=== PATIENT | female | born 1980 | race Caucasian/White ===

== ENCOUNTER → 2017-03-17 | Outpatient (CLI) | payer BC ==
[~2017-03-17] MED LIST: DUO-KAPS1 CAP PO; IBUPROFEN200 M1 PO
== END ==
LOC: COL.CARD 14:05
DX: R00.0 Tachycardia, unspecified (principal)

== ENCOUNTER → 2019-05-14 | Outpatient (CLI) | payer BC | LOC: COL.RAD 08:12 | DX: R14.0 Abdominal distension (gaseous) (principal); K92.0 Hematemesis; R10.13 Epigastric pain; R11.2 Nausea with vomiting, unspecified | CPT/HCPCS: A9541 ==

== ENCOUNTER 2022-06-11 08:27 | Day surgery (SDC) | payer BC ==
[~2022-06-11] VITALS: Ht 142.2 cm; Wt 51.0 kg
[2022-06-11] MEDS ORDERED: CYMBALTA 20MG20 MG PO (09:14)
[2022-06-11] MEDS ORDERED: PRIL40 PO (09:14)
[2022-06-11] MEDS ORDERED: BYSTOLIC10 MG PO (09:15)
[2022-06-11] MEDS ORDERED: VITAMIND3 5000 PO (09:15)
[2022-06-11] MEDS ORDERED: SYNTHROID 0.0.025 MG PO (09:16)
[2022-06-11] MEDS ORDERED: REGLAN 5MG T5 MG/TAB PO (09:17)
[2022-06-11 10:44] VITALS: BP 119/75; PULSE 54; TEMP 97.2
[2022-06-11 11:00] VITALS: BP 116/81; PULSE 84; TEMP 97.4
[2022-06-11 11:15] VITALS: BP 121/81; PULSE 85
[2022-06-11 11:30] VITALS: BP 117/85; PULSE 63
--- NOTE | 2022-06-11 11:51 | NUR ---
1100: Patient arrived back into bay 8 from Endo procedure. Patient is alert and awake. Vital signs stable on room air. Report received from [facility]. Patient requesting water and saltines. Patient denies pain and nausea. Call light left within reach. brought back into room from waiting room. 1105: MD in to see patient. 1115: Patient vitally stable. Tolerating food and drink well. Denies pain or nausea at this time. 1130: Patient meets discharge criteria. IV removed without complications. Went through discharge instructions with patient and . Patient got dressed. Escorted to patient entrance via wheelchair. Patient left in the care of her , Sudeep.
== END 2022-06-11 11:45 | disposition home or self-care (01) ==
LOC: SDCO 08:27
DX: D13.1 Benign neoplasm of stomach (principal); F45.8 Other somatoform disorders; Z87.11 Personal history of peptic ulcer disease; K44.9 Diaphragmatic hernia without obstruction or gangrene
CPT/HCPCS: J2704; J7030

== ENCOUNTER 2023-07-12 11:09 | Inpatient (IN) | payer BC ==
[~2023-07-12] VITALS: Ht 142.2 cm; Wt 54.2 kg
[~2023-07-12 11:09] MED LIST changes: +BYSTOLIC10 MG PO; +CYMBALTA 20MG20 MG PO; +PRIL40 PO; +REGLAN 5MG T5 MG/TAB PO; +SYNTHROID 0.0.025 MG PO; +VITAMIND3 5000 PO
--- NOTE | 2023-07-12 15:01 | NUR ---
New pt arrived to unit from [facility] accompanied by her . Pt is a/o x4. NWB to RLE. Incisions x 3 w/ sutures noted to RLE. Valuable items denied by the pt & her spouse. Glasses are at the bedside. plans to go home to [place] to bring more clothing. Pt's skin is intact except for RLE surgical incisions. Orientation provided to room/unit. No further questions. Call light in her reach. Bed alarm is on.
[2023-07-12 15:11] VITALS: BP 125/87; PULSE 99; TEMP 98.9
[2023-07-12] MEDS ORDERED: ASPIRIN E.C. 8181 MG PO (15:14)
[2023-07-12] MEDS ORDERED: TYLENOL 500MG500 MG PO (15:28)
[2023-07-12] MEDS ORDERED: FERROUSAL325 MG PO (15:29)
[2023-07-12] MEDS ORDERED: NORCO 325 MG-7.1 TAB PO (15:30)
[2023-07-12 17:30] VITALS: BP_SYST 125
--- NOTE | 2023-07-12 17:44 | NUR ---
Pt resting supine in bed watching tv. Pt eating dinner independently. PRN pain medication given approx 1.5 hrs ago. Pt denies the need for additional pain medication at this time. Incisions x 4 remain CDI w/ sutures. Pt has her call light in reach. Bed alarm is on.
[2023-07-12 18:00] VITALS: BP 123/80; PULSE 97; TEMP 98.6
--- NOTE | 2023-07-12 18:15 | NUR ---
Pt up to the toilet. Pt reporting it feels difficult to pass her stool & is requesting Miralax. Discussed w/ pt that she no longer has a PRN order for Miralax. Pt agreeable to taking Senokot per PRN order. Senna given.
--- NOTE | 2023-07-12 19:45 | NUR ---
REPORT RECIEVED FROM MATT WOLFF. PT RESTING IN BED WATCHING TV. PT DENIES PAIN. PT ASSISTED TO RECLINER. CHAIR ALARM ON. CALL LIGHT IN PLACE. ALL NEEDS MET AT THIS TIME.
[2023-07-12 21:00] VITALS: BP_SYST 123
--- NOTE | 2023-07-12 22:14 | NUR ---
SHIFT ASSESSMENT COMPLETE, SEE DOCUMENTATION. PT AMBULATED TO BATHROOM UTILIZING GAIT BELT AND WALKER. PT HOPPED ON LEFT FOOT WITH RN ASSISTANCE, TOLERATED WELL. PT ASSISTED BACK TO BED. NO C/O PAIN. BED ALARM ON. CALL LIGHT IN PLACE. ALL NEEDS MET AT THIS TIME.
--- NOTE | 2023-07-12 23:55 | NUR ---
PT C/O RIGHT LOWER EXTREMITY PAIN AND REQUESTS PAIN MEDS. PRN 7.5/325 NORCO ADMINISTERED AT 2258. PT REASSESSED NOW AND STATES THERE IS STILL SOME PAIN. PT LEG ELEVATED AND REPOSITIONED. PT EXPRESSED RELIEF AFTER REPOSITIONING. CALL LIGHT IN PLACE. BED ALARM ON. ALL NEEDS MET AT THIS TIME.
[2023-07-13 01:13] VITALS: BP_SYST 123
[2023-07-13 05:50] VITALS: BP 132/91; PULSE 89; TEMP 98.1
--- NOTE | 2023-07-13 06:00 | NUR ---
PT CALLED C/O RLE PAIN RATED 8/10. PRN 7.5/325 NORCO ADMINISTERED PER ORDERS. CALL LIGHT IN PLACE. ALL NEEDS MET AT THIS TIME.
[2023-07-13 08:20] LABS: BASO % 0.4 % (0.0-2.0); EOS # 0.3 K/mm3 (0.0-0.7); EOS % 3.8 % (0.0-4.0); GRAN # 6.1 K/mm3 (1.4-6.5); GRAN % 73.4 % (42.2-75.2); LYMPH # 1.3 K/mm3 (1.2-3.4); MEAN CELL VOLUME 92 fl (80.0-100.0); MEAN CORPUSCULAR HGB CONC 32 g/dl (33.0-37.0); MEAN PLATELET VOLUME 9.6 fl (7.4-10.4); MONO # 0.5 K/mm3 (0.1-0.6); MONO % 5.8 % (1.7-9.3); PLATELET COUNT 383 K/mm3 (130-400); RED BLOOD COUNT 3.17 M/mm3 (4.10-5.30)
[2023-07-13 08:21] LABS: HEMOGLOBIN 9.3 g/dl (12.5-16.0); MEAN CORPUSCULAR HEMOGLOBIN 29 pg (27-31)
[2023-07-13] MEDS ORDERED: ESTROVEN PO (09:48)
--- NOTE | 2023-07-13 12:56 | NUR ---
Several visit attempts; Patient sleeping, Health Promotion Specialist left card offering God's Blessings and information regarding the availability of Spiritual Care at our hospital.
--- NOTE | 2023-07-13 15:21 | NUR ---
Has lack of transportation kept you from medical appts, meetings, work, or from getting things needed for daily living? NO How often do you feel lonely or isolated from those around you? NEVER Over the past 5 days, how much of the time has pain made it hard for you to sleep? FREQUENTLY Over the past 5 days, how often have you limited your participation in therapy due to pain? RARELY/NOT AT ALL Over the past 5 days, how often have you limited your day-to-day activities because of pain? RARELY/NOT AT ALL Have you had 2 or more falls in the past year or any fall with an injury? YES Did you have major surgery during the 100 days prior to admission? YES
[2023-07-13 17:10] VITALS: BP 125/79; PULSE 90; TEMP 98.1
--- NOTE | 2023-07-13 19:49 | NUR ---
REPORT RECIEVED FROM MOE WOLFF. PT RESTING IN BED WITH FAMILY AT BEDSIDE. PT REPORTS PAIN RATED 8/10. PRN 7.5/325 NORCO ADMINISTERED PER ORDERS. CALL LIGHT IN PLACE. ALL NEEDS MET AT THIS TIME.
--- NOTE | 2023-07-13 21:19 | NUR ---
SHIFT ASSESSMENT COMPLETE, SEE DOCUMENTATION. PT AMBULATING WELL UTILIZING WALKER AND GAIT BELT. PT CONTINUES TO C/O RLE PAIN. 10/04 TAB 7.5/325 PRN NORCO ADMINISTERED PER ORDERS. PT BACK TO BED WATCHING TV. BED ALARM ON. CALL LIGHT IN PLACE. ALL NEEDS MET AT THIS TIME.
[2023-07-14 05:28] VITALS: BP 136/86; PULSE 101; TEMP 98.1
--- NOTE | 2023-07-14 09:04 | NUR ---
RECIEVED REPORT FROM NIGHT NURSE
[2023-07-14 17:04] VITALS: BP 120/72; PULSE 88; TEMP 98
--- NOTE | 2023-07-14 20:00 | NUR ---
PT RESTING IN BED. FAMILY IN EARLIER. VERY SUPPORTIVE. ASKED FOR PAIN MED. SEE MAR. PAIN LEVEL 04/11. CALL LIGHT IN REACH. BED ALARM SET.
[2023-07-15 05:35] VITALS: BP 118/66; PULSE 78; TEMP 97.9
--- NOTE | 2023-07-15 07:49 | NUR ---
PT LAYING IN BED, ALERT AND ORIENTEDX4. RATES PAIN IN THE RIGHT KNEE 5/10 BUT TOLERABLE. WEAKNESS IN THE RIGHT LEG. ASSESSED AND GAVE MORNING MEDS. CALL LIGHT WITHIN REACH.
--- NOTE | 2023-07-15 12:39 | NUR ---
Admission QIM scores were reviewed by the team. Code of 4 chosen for oral hygiene was determined by team discussion to be the most usual performance before interventions for this patient during the assessment period. Code of 3 chosen for lower body dressing was determined by team discussion to be the most usual performance before interventions for this patient during the assessment period. Code of 3 chosen for putting on/taking off footwear was determined by team discussion to be the most usual performance before interventions for this patient during the assessment period. Code of 4 chosen for sit to lying was determined by team discussion to be the most usual performance before interventions for this patient during the assessment period. Code of 4 chosen for sit to stand was determined by team discussion to be the most usual performance for this patient during the discharge assessment period. Code of 88 chosen for walking 50 feet w/ 2 turns was determined by team discussion to be the most usual performance before interventions for this patient during the discharge assessment period.--Meche Abbott, PD
--- NOTE | 2023-07-15 14:17 | NUR ---
[employer] met with patient to complete intake as patient is new to the [facility] unit. Patient lives in [place] with her , Steve (ph#[phone]). Patient advised she sees a provider at [facility] for primary care, but cannot remember her name. Patient believes it could be Dr. Rao. Patient obtains medications from [facility] with no difficulties. Patient advised she normally drives herself to appointments, however with her current status, she will have to rely on others for transportation, which could be a barrier. Patient stated her can assist with this, but she worries about going to PT 2-3 times a week and needing transportation. SW advised she would speak with the team about this and discuss outpatient PT vs possible Home Health services. Patient has a wheelchair, walker, and shower seat available at home. Patient reports she is normally independent with ADLS and lives in a one level home. Patient does not have DPOA-HC and is not interested in completing one at this time. 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 Patient discussed scheduling a family meeting and patient advised her would be available Tuesday so meeting was scheduled for 5.
[2023-07-15 17:15] VITALS: BP 110/72; PULSE 86; TEMP 98.2
[2023-07-15 18:55] VITALS: BP_SYST 110
--- NOTE | 2023-07-15 20:00 | NUR ---
PT RESTING IN BED. A&O. SEE SHIFT ASSESSMENT COMPLETED. TYLENOL AND SENOKOT GIVEN FOR BREAKTHROUGH PAIN. RT MEDIAL KNEE DISCOMFORT. PT REQUESTING SENOKOT. BS X4. NO DISTRESS. CALL LIGHT IN REACH. BED ALARM SET.
[2023-07-16 05:14] VITALS: BP 128/79; PULSE 72; TEMP 98.7
[2023-07-16 05:30] LABS: HEMATOCRIT 29.7 % (37.0-47.0); HEMOGLOBIN 9.6 g/dl (12.5-16.0)
[2023-07-16 06:44] VITALS: BP_SYST 128
--- NOTE | 2023-07-16 06:45 | NUR ---
Shift report received from night RN. No events reported overnight. Pt sleeping supine in bed w/ even & unlabored resps. Call light in reach. Bed alarm is on.
--- NOTE | 2023-07-16 11:50 | NUR ---
Pt is back in her room after Group Therapy. She is lying supine in bed & rates RLE pain at 9/10. Saxon given per PRN order. Ice pack given. Pt denies other needs. Call light in reach. Bed alarm is on.
--- NOTE | 2023-07-16 15:48 | NUR ---
Pt resting supine in bed. Chester given per PRN order at pt's request. Ice pack also given. Pt denies other needs. Call light in her reach. Bed alarm is on.
[2023-07-16 17:13] VITALS: BP 116/75; PULSE 85; TEMP 98.5
[2023-07-16 18:40] VITALS: BP_SYST 116
[2023-07-17 05:27] VITALS: BP 112/71; PULSE 78; TEMP 98
[2023-07-17 06:51] VITALS: BP_SYST 112
--- NOTE | 2023-07-17 06:51 | NUR ---
Shift report received from night baker RN. Pain medication given this morning by night RN. No events reported overnight. Pt sleeping supine in bed w/ even & unlabored resps. Call light in reach. Bed alarm is on.
--- NOTE | 2023-07-17 13:26 | NUR ---
Pt sitting up in bed eating her lunch. Pt was given pain medication approx 2 hrs ago. She denies the need for additional pain medication at this time. Other needs denied. Call light in her reach. Bed alarm is on.
--- NOTE | 2023-07-17 16:34 | NUR ---
Pt sleeping in left side lying position in bed. Resps are even & unlabored. Call light in reach. Bed alarm on. & daughters are at the bedside.
[2023-07-17 17:48] VITALS: BP 126/82; PULSE 75; TEMP 98
[2023-07-17 20:30] VITALS: BP_SYST 126
[2023-07-18 05:15] VITALS: BP 119/64; PULSE 84; TEMP 97.7
--- NOTE | 2023-07-18 07:19 | NUR ---
RECIEVED REPORT FROM TRIM OPERATOR NURSE
[2023-07-18 07:20] VITALS: BP_SYST 119
--- NOTE | 2023-07-18 15:55 | NUR ---
[employer] met with patient to follow up after the weekend. Patient is going to be discharged tomorrow and she is looking forward to it. Patient was between home health services and outpatient, but finally decided on outpatient PT at [facility]. Patient was also interested in mental health resources which SW provided. SW contacted patient's , Steve and reviewed discharge plan. He will be off work tomorrow and here all day.
[2023-07-18 17:23] VITALS: BP 133/83; PULSE 73; TEMP 98
--- NOTE | 2023-07-18 19:05 | NUR ---
RECEIVED CHANGE OF SHIFT REPORT FROM DAY SHIFT RN.
[2023-07-19 05:23] VITALS: BP 134/85; PULSE 79; TEMP 978.2; TEMP 98.2
--- NOTE | 2023-07-19 07:04 | NUR ---
RECIEVED REPORT FROM FLASH DRIER OPERATOR NURSE
[2023-07-19 07:05] VITALS: BP_SYST 143
--- NOTE | 2023-07-19 07:07 | NUR ---
CHANGE OF SHIFT REPORT GIVEN TO DAY SHIFT RNRASHEED. REQUESTED AND GIVEN PAIN MEDS, SEE MAR. PATIENT SLEPT THROUGH NIGHT WITH EVEN/NONLABORED BREATHING, AND EXIT ALARM ON WITH CALL LIGHT IN REACH.
[2023-07-19] MEDS ORDERED: FERROUSAL325 MG PO (09:16)
[2023-07-19] MEDS ORDERED: ASPIRIN E.C. 8181 MG PO (09:17)
[2023-07-19] MEDS ORDERED: NORCO 325 MG-7.1 TAB PO (09:19)
--- NOTE | 2023-07-19 11:21 | NUR ---
PT MET CRITERION FOR DISCHARGE. ALL DISCHARGE INSTRUCTIONS EXPLAINED AND WENT OVER FOLLOW UP APPOINTMENTS. ALL QUESTIONS ANSWERED AND PT WAS ESCORTED OUT BY HOSPITAL STAFF TO PRIVATE VEHICLE AT 1120.
--- NOTE | 2023-07-19 11:29 | NUR ---
PT ALERT AND ORIENTED X4. VITAL SIGNS STABLE. C/O PAIN RATED 6/10, MEDICATED FOR PAIN PER EMAR. HEAD TO TOE ASSESSMENT COMPLETE. MEDICATED PER EMAR DAILY MEDICATIONS. PT IS STBY ASSIST W FWW. FALL PRECAUTIONS IN PLACE, CALL LIGHT WITHIN REACH.
--- NOTE | 2023-07-19 13:02 | NUR ---
Discharge QIM scores were reviewed by the team. Code of 6 chosen for toilet transfers was determined by team discussion to be the most usual performance for this patient during the discharge assessment period. Code of 6 chosen for walking 10 feet was determined by team discussion to be the most usual performance for this patient during the discharge assessment period.--Meche Abbott, PD
--- NOTE | 2023-07-19 13:50 | NUR ---
Has lack of transportation kept you from medical appts, meetings, work, or from getting things needed for daily living? NO How often do you feel lonely or isolated from those around you? RARELY Over the past 5 days, how much of the time has pain made it hard for you to sleep? OCCASIONALLY Over the past 5 days, how often have you limited your participation in therapy due to pain? RARELY/NOT AT ALL Over the past 5 days, how often have you limited your day-to-day activities because of pain? ALMOST CONSTANTLY
--- NOTE | 2023-07-19 14:23 | NUR ---
[employer] [facility] and [facility] referral and orders for outpatient PT. [facility] will contact patient directly to set up first appointment. SW met with patient to provide the above update. KAL also assisted in scheduling follow up with patient's primary care physician, Dr. Farrell at [facility]. Appointment made for 07/25/23 at 1300 and provided to patient. KAL faxed updates to the [place] office.
== END 2023-07-19 11:10 | disposition home or self-care (01) | DRG 560 ==
LOC: SURG 14:44
PROVIDERS: Internal Medicine; ADMIT Physical Medicine & Rehabilitation Sports Medicine
DX: S72.301D Unspecified fracture of shaft of right femur, subsequent encounter for closed fracture with routine healing (principal); D62 Acute posthemorrhagic anemia; Q78.0 Osteogenesis imperfecta; S72.421D Displaced fracture of lateral condyle of right femur, subsequent encounter for closed fracture with routine healing; W01.0XXD Fall on same level from slipping, tripping and stumbling without subsequent striking against object, subsequent encounter; I10 Essential (primary) hypertension; R53.81 Other malaise; K59.00 Constipation, unspecified; Z74.09 Other reduced mobility; R26.89 Other abnormalities of gait and mobility; Z79.899 Other long term (current) drug therapy